=== PATIENT | male | born 1985 | race Two or more races ===

== ENCOUNTER 2017-04-24 11:08 | Emergency (ER) | payer SELFPAY ==
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
[2017-04-24 12:35] VITALS: BP 132/86
== END 2017-04-24 12:36 | disposition home or self-care (01) ==
LOC: ER 11:08
DX: M25.561 Pain in right knee (principal); S80.01XA Contusion of right knee, initial encounter; X58.XXXA Exposure to other specified factors, initial encounter; Y93.53 Activity, golf; Y92.007 Garden or yard of unspecified non-institutional (private) residence as the place of occurrence of the external cause

== ENCOUNTER 2017-05-29 02:29 | Emergency (ER) | payer MEDICAID ==
[2017-05-29 02:39] LABS: Hematocrit 44.4 % (42.0-52.0); Hemoglobin 15.7 gm/dL (13.5-18.0); Mean Cell Volume 83.1 fl (78-100); Mean Corpuscular Hemoglobin 29.4 pg (27-31); Mean Corpuscular Hgb Conc 35.4 g/dl (32-36); Mean Platelet Volume 9.3 fl (6.0-9.5); Neutrophil # 8.4 K/mm3 (1.3-6.0); Neutrophil % 59.5 % (42-75.0); Platelet Count 304 K/mm3 (150-450); Red Blood Count 5.34 M/mm3 (4.7-6.0); Red Cell Distribution Width 11.9 % (11.5-14.0); White Blood Count 14.2 K/mm3 (4.0-10.5)
[2017-05-29] MEDS ORDERED: MORPHINE SULFATE 10 MG/ML SYRG ONE (02:40)
[2017-05-29] MEDS ORDERED: MORPHINE SULFATE 10 MG/ML SYRG IV ONE (02:42)
[2017-05-29] MEDS ORDERED: NORMAL SALINE 1,000 ML IV ONE (02:48)
[2017-05-29 02:53] LABS: Prothrombin Time (Patient) 10.6 Seconds (9.0-11.0)
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
[2017-05-29 02:57] LABS: ALT 29 U/L (19-67); AST 14 U/L (0-48); Alkaline Phosphatase * 62 U/L (50-170); Amylase * 30 U/L (25-115); Anion Gap 24.3 mmol/L (6.8-13.8); BUN/Creatinine Ratio 10.2 (9.0-21.6); Bilirubin, Total 0.6 mg/dL (0.0-1.1); Blood Urea Nitrogen 14 mg/dL (6-23); Ca. Corrected For Albumin 9.2 mg/dL (8.4-10.2); Calcium * 9.5 mg/dL (7.9-10.9); Carbon Dioxide 16.5 mmol/L (24-32.6); Chloride 102 mmol/L (97-106); Glucose * 152 mg/dL (70-110); INR 1.06 INR (0.90-1.10); Lipase 127 U/L (73-393); Partial Thrombolplastin Time 25.9 Seconds (24-32); Potassium 3.8 mmol/L (3.4-4.6); Sodium 139 mmol/L (132-142); Total Protein 7.8 gm/dL (6.2-8.2)
[2017-05-29 02:57] LABS: Urine Bilirubin Negative (NEGATIVE); Urine Blood Negative /ul (NEGATIVE); Urine Ketone Negative (NEGATIVE); Urine Nitrite Negative (NEGATIVE); Urine Protein 100 mg/dL (NEGATIVE); Urine Specific Gravity >=1.030 SP.GR. (1.005-1.030)
[2017-05-29 02:58] LABS: Urine Appearance Clear; Urine Bacteria None Seen; Urine Color Pale Yellow; Urine WBC 0-5 /hpf (0-5)
[2017-05-29 03:09] LABS: Cocaine Ur Negative (NEGATIVE); Urine Barbiturate Negative (NEGATIVE); Urine Benzodiazepines Negative (NEGATIVE); Urine Opiates Negative (NEGATIVE); Urine PCP Negative (NEGATIVE)
[2017-05-29 03:10] LABS: Urine THC Positive (NEGATIVE)
[2017-05-29 04:17] VITALS: BP 123/70
== END 2017-05-29 03:00 | disposition short-term general hospital (02) ==
LOC: ER 02:29
PROC: 0T9B70Z Drainage of Bladder with Drainage Device, Via Natural or Artificial Opening (ICD-10-PCS; principal; 2017-05-29)
DX: S81.812A Laceration without foreign body, left lower leg, initial encounter (principal); S71.012A Laceration without foreign body, left hip, initial encounter; S46.322A Laceration of muscle, fascia and tendon of triceps, left arm, initial encounter; S46.222A Laceration of muscle, fascia and tendon of other parts of biceps, left arm, initial encounter; S41.112A Laceration without foreign body of left upper arm, initial encounter; X99.1XXA Assault by knife, initial encounter; S01.81XA Laceration without foreign body of other part of head, initial encounter
CPT/HCPCS: 36415; 51702; 80053; 80307; 81001; 82150; 83690; 85025; 85610; 85730; 96374; 99285; G0481